=== PATIENT | female | born 1965 | race Caucasian/White ===

== ENCOUNTER 2019-04-13 07:54 | Day surgery (SDC) | payer OTHER, SELFPAY ==
[2019-04-13] VITALS (12 sets, daily range): BP systolic 79–114; BP diastolic 52–77; PULSE 55–90; RESP 12–20; TEMP 36.1–36.9; O2SAT 98–100; BMI 19.0
[2019-04-13] MEDS: SODIUM CHLORIDE 0.9% 1,000 ML 200 ML IV (08:41)
--- NOTE | 2019-04-13 09:18 | PM.HP.1 ---
History of Present Illness History of Present Illness Date Patient Seen: 04/13/19 Time Patient Seen: 09:18 Chief complaint: [id number] Narrative: This is a 53-year-old woman who is never had a screening colonoscopy. She denies any symptoms of hematochezia, melena, unexplained weight loss, or abdominal pain. She has a family history of colon polyps, but no advance polyps found under the age of 50. ROS: Thirteen system review is otherwise negative other than as mentioned below and in HPI. PE: GENERAL: Well groomed and cooperative. Appears stated age. Answers questions promptly and appropriately. Vital signs noted. HENT: Normocephalic, atraumatic. Hearing intact. Oral mucosa is pink and moist. EYES: Conjunctiva pink, sclera white, no periorbital swelling. CARDIOVASCULAR: Regular rate. No pedal edema. RESPIRATORY: Non-tachypneic, breathing comfortably on room air. GASTROINTESTINAL: Abdomen soft and non-distended GENITALURINARY: No flank tenderness. MUSCULOSKELETAL: Equal tone and mass bilaterally. SKIN: Warm, dry, soft, appropriate color for ethnicity. No other lesions, rashes, or wounds. NEURO: Alert and Oriented X 3. No gross sensory deficits, or cognitive issues. PSYCH: Appropriate affect and mood. Patient History Family & Social History Social History: household members spouse Meds Home Medications and Allergies Home Medications Medication Instructions Recorded Confirmed Type nitrofurantoin monohyd/m-cryst 100 mg PO Q12H #10 cap 05/08/16 Rx [Macrobid] phenazopyridine [Pyridium] 200 mg PO TID #10 tab 05/08/16 Rx Allergies Allergy/AdvReac Type Severity Reaction Status Date / Time No Known Drug Allergies Allergy Verified 04/13/19 08:11 Exam Vital Signs (past 8 hours): - 04/13/19 08:11 Temperature 97.3 F L Pulse Rate 90 Respiratory Rate 20 Blood Pressure 114/77 Pulse Oximetry 98 Oxygen Delivery Method Room Air Assessment & Plan Assessment & Plan narrative: Risks and benefits of colonoscopy and polypectomy were discussed with the patient who desires to proceed. Risk of bleeding, perforation, need for additional procedures, risks of sedation were discussed. Time Spent With Patient Time with patient: 15-24 minutes
[2019-04-13] MEDS: MIDAZOLAM 5 MG/5 ML VIAL IV (09:40)
[2019-04-13] MEDS: fentaNYL 250 MCG/5 ML INJ IV (09:40)
--- NOTE | 2019-04-13 09:52 | PM.OP.ENDO ---
Operative Date/Time/Diagnoses Date of procedure: 04/13/19 Time of procedure: 09:52 Pre-op diagnosis: average risk for colon cancer Post-op diagnosis: same Procedure & Clinicians Study performed: Colonoscopy Same procedure as scheduled: Yes Indications: Average risk for colon cancer, never had a screening colonoscopy Surgeon: Valorie Rodriguez Procedure Notes SCOAP/Timeout: Performed Procedure in detail: The patient was brought to the room and placed in left lateral decubitus position with all bony prominences padded. A time-out was performed and then the patient was given procedural sedation starting with 3 mg of Versed and 100 mcg of fentanyl. Vitals were monitored throughout the procedure and remained stable. Once adequately sedated the procedure was begun. A rectal exam was performed revealing no abnormalities. The colonoscope was then introduced to the rectum and advanced to the cecum in the usual fashion. The cecum was identified by the appendiceal orifice, the mucosal tri-fold, and the ileocecal valve. The scope was then retracted while rotating side to side and examining each mucosal fold. At the conclusion of the procedure retroflexion was performed and small grade 1-2 internal hemorrhoids without stigmata of bleeding were seen. The scope was then withdrawn from the rectum the procedure was concluded. The patient tolerated the procedure well and was transferred to the PACU in stable condition. Scope withdrawal time: 8 Sedation minutes: 27 Specimen(s): none sent Complications: none Impression: Normal colon Post-procedure Recommendations: Colonscopy in 10 years (Sooner if any concerning symptoms arise) Follow up: as needed Disposition: PACU
--- NOTE | 2019-04-13 11:00 | SUR.PHASEII ---
Patient home with family in stable condition via wheelchair to POV.
== END 2019-04-13 11:01 | disposition home or self-care (01) ==
PROVIDERS: Visit Provider Surgery
PROC: 0DJD8ZZ Inspection of Lower Intestinal Tract, Via Natural or Artificial Opening Endoscopic (ICD-10-PCS; CPT 45378; principal; 2019-04-13 09:15)
DX: Z12.11 Encounter for screening for malignant neoplasm of colon (principal); Z80.0 Family history of malignant neoplasm of digestive organs
CPT/HCPCS: 45378; 99152; 99153; J2250; J3010